=== PATIENT | male | born 1935 | race Caucasian/White ===

== ENCOUNTER 2018-02-04 11:01 | Observation (INO) ==
[2018-02-04] MEDS ORDERED: ASPIRIN 325 MG TABLET PO STA (11:31)
[2018-02-04 11:41] LABS: Basophils % 0.6 % (0.0-0.8); Eosinophils # 0.2 10*3/uL (0.0-0.87); Eosinophils % 3.1 % (0.00-10.9); Hematocrit 40.2 VOL% (42.0-52.0); Immature Granulocytes % 0.3 %; Immature Granulocytes Absolute 0.02 #; Lymphocytes # 1.3 10*3/uL (1.4-4.0); Lymphocytes % 20.6 % (21.2-54.2); Mean Corpuscular HGB Conc 32.3 GM/DL (32-36); Mean Corpuscular Hemoglobin 30 PG (27-34); Mean Platelet Volume 10.9 FL (9.6-12.0); Monocytes # 0.5 10*3/uL (0.11-0.8); Neutrophils # 4.4 10*3/uL (1.4-7.4); Neutrophils % 67.4 % (38.7-73.9); Platelet Count 103 T/CUMM (130-400); Red Blood Count 4.37 MC/CUMM (3.8-5.5); White Blood Count 6.5 T/CUMM (4-12)
[2018-02-04 12:24] LABS: Albumin 3.4 G/DL (3.4-5.0); Bilirubin,Total 1.1 MG/DL (0.2-1.0); Calcium 8.5 MG/DL (8.5-10.1); Potassium 4.5 MMOL/L (3.5-5.1)
[2018-02-04] MEDS ORDERED: BENZONATATE 100 MG CAPSULE PO PRN (14:01)
[2018-02-04] MEDS ORDERED: KETOROLAC 30 MG/1 ML VIAL IV ONE (14:01)
[2018-02-04] MEDS ORDERED: ONDANSETRON 4 MG/2 ML VIAL IV PRN (14:12)
[2018-02-04] MEDS ORDERED: ACETAMINOPHEN 325 MG TABLET PO PRN (14:12)
[2018-02-04] MEDS: GABAPENTIN 100 MG CAPSULE PO SCH ×2 (14:46→20:28)
[2018-02-04] MEDS ORDERED: LEVODOPA PO SCH (15:00)
[2018-02-04] MEDS ORDERED: CARBIDOPA PO SCH (15:00)
[2018-02-04] MEDS ORDERED: ENTACAPONE PO SCH (15:00)
[2018-02-04] MEDS: DICLOFENAC 1% GEL 100 GM TUBE TOP SCH ×2 (17:10→20:33)
[2018-02-04] MEDS: CARBIDOPA/LEVODOPA 25-100 MG TABLET PO SCH ×2 (17:10→20:28)
[2018-02-04] MEDS: ACETAMINOPHEN 325 MG TABLET PO SCH ×2 (18:14→20:28)
[2018-02-04] MEDS: FUROSEMIDE 20 MG TABLET PO SCH (18:22)
[2018-02-04] MEDS: TAMSULOSIN 0.4 MG CAPSULE PO SCH (20:28)
[2018-02-04] MEDS: CARVEDILOL 3.125 MG TABLET PO SCH (20:28)
[2018-02-04] MEDS: DOCUSATE SODIUM 100 MG CAPSULE PO SCH (20:28)
[2018-02-04] MEDS: APIXABAN 5 MG TABLET PO SCH (20:28)
[2018-02-04] MEDS ORDERED: clonazePAM 0.5 MG TABLET PO SCH (21:00)
[2018-02-04] MEDS ORDERED: ASPIRIN EC 81 MG TABLET PO SCH (21:00)
[2018-02-05 03:26] LABS: Basophils % 0.5 % (0.0-0.8); Eosinophils # 0.4 10*3/uL (0.0-0.87); Eosinophils % 4.7 % (0.00-10.9); Hematocrit 37.9 VOL% (42.0-52.0); Hemoglobin 12.4 GM/DL (14.0-18.0); Immature Granulocytes % 0.4 %; Immature Granulocytes Absolute 0.03 #; Lymphocytes # 1.8 10*3/uL (1.4-4.0); Lymphocytes % 22.3 % (21.2-54.2); Mean Corpuscular HGB Conc 32.7 GM/DL (32-36); Mean Corpuscular Hemoglobin 30 PG (27-34); Mean Corpuscular Volume 91.1 FL (87-102); Mean Platelet Volume 10.7 FL (9.6-12.0); Monocytes # 0.9 10*3/uL (0.11-0.8); Monocytes % 10.8 % (1.7-12.7); Neutrophils # 5.1 10*3/uL (1.4-7.4); Neutrophils % 61.3 % (38.7-73.9); Red Blood Count 4.16 MC/CUMM (3.8-5.5); Red Cell Distribution Width 14.1 % (9.3-17.3); White Blood Count 8.3 T/CUMM (4-12)
[2018-02-05 03:30] LABS: Platelet Count 96 T/CUMM (130-400)
[2018-02-05 03:51] LABS: Calcium 8.3 MG/DL (8.5-10.1); Osmolality,Calculated 284.1 MOS/KG (273-304); Potassium 3.8 MMOL/L (3.5-5.1)
[2018-02-05 03:52] LABS: Ovalocytes Few; Platelet Estimate Decreased
[2018-02-05] MEDS ORDERED: CHOLECALCIFEROL 5,000 UNIT TABLET PO SCH (09:00)
[2018-02-05] MEDS ORDERED: buPROPion XL 150 MG TABLET PO SCH (09:00)
[2018-02-05] MEDS ORDERED: MULTIVITAMIN (CENTRUM) TABLET PO SCH (09:00)
[2018-02-05] MEDS ORDERED: PANTOPRAZOLE 40 MG TABLET PO SCH (09:00)
[2018-02-05] MEDS ORDERED: AMIODARONE 200 MG TABLET PO SCH (09:00)
[2018-02-05] MEDS ORDERED: ESCITALOPRAM 10 MG TABLET PO SCH (09:00)
[2018-02-05] MEDS ORDERED: SIMVASTATIN 20 MG TABLET PO SCH (09:00)
[2018-02-05] MEDS: DOCUSATE SODIUM 100 MG CAPSULE PO SCH (09:20)
[2018-02-05] MEDS: GABAPENTIN 100 MG CAPSULE PO SCH (09:20)
[2018-02-05] MEDS: FUROSEMIDE 20 MG TABLET PO SCH (09:20)
[2018-02-05] MEDS: APIXABAN 5 MG TABLET PO SCH (09:21)
[2018-02-05] MEDS: TAMSULOSIN 0.4 MG CAPSULE PO SCH (09:21)
[2018-02-05] MEDS: CARBIDOPA/LEVODOPA 25-100 MG TABLET PO SCH (09:21)
[2018-02-05] MEDS: ACETAMINOPHEN 325 MG TABLET PO SCH (09:22)
[2018-02-05] MEDS: CARVEDILOL 3.125 MG TABLET PO SCH (09:22)
[2018-02-05] MEDS: DICLOFENAC 1% GEL 100 GM TUBE TOP SCH (09:23)
[2018-02-05 12:09] VITALS: BP 120/64
[2018-02-06] MEDS ORDERED: MAGNESIUM CHLORIDE 64 MG TABLET PO SCH (09:00)
[2018-02-06] MEDS ORDERED: DUTASTERIDE 0.5 MG CAPSULE PO SCH (09:00)
== END 2018-02-05 14:08 | disposition home or self-care (01) ==
LOC: EDUNIT# → EDBD → N.ED 11:01 → N.EDINP 11:01 → N.TELES 13:52 → N.2W 14:10 → N.TELES 16:11
PROVIDERS: ADMIT Internal Medicine; ATTEND Internal Medicine

== ENCOUNTER 2018-08-23 14:37 | Inpatient (IN) ==
[2018-08-23] MEDS ORDERED: SODIUM CHLORIDE 0.9% 500 ML IV STA (15:05)
[2018-08-23 16:00] LABS: Basophils % 0.3 % (0.0-0.8); Eosinophils # 0.2 10*3/uL (0.0-0.87); Eosinophils % 2.8 % (0.00-10.9); Hematocrit 38.2 VOL% (42.0-52.0); Hemoglobin 12.2 GM/DL (14.0-18.0); Immature Granulocytes % 0.4 %; Immature Granulocytes Absolute 0.03 #; Lymphocytes # 1.5 10*3/uL (1.4-4.0); Lymphocytes % 22.6 % (21.2-54.2); Mean Corpuscular HGB Conc 31.9 GM/DL (32-36); Mean Corpuscular Volume 93.6 FL (87-102); Mean Platelet Volume 10.1 FL (9.6-12.0); Monocytes % 10.1 % (1.7-12.7); Neutrophils % 63.8 % (38.7-73.9); Platelet Count 138 T/CUMM (130-400); Red Blood Count 4.08 MC/CUMM (3.8-5.5); Red Cell Distribution Width 14.2 % (9.3-17.3); White Blood Count 6.7 T/CUMM (4-12)
[2018-08-23 16:09] LABS: INR 1.1; PT Patient Result 12.1 SECS
[2018-08-23 16:10] LABS: Apearance,Urine CLEAR (Clear); Bilirubin,Urine Negative (Negative); Blood, Urine Negative (Negative); Glucose,Urine (UA) Negative (Negative); Ketones,Urine Negative (Negative); Mucus,Urine Occasional /LPF (Occasional); Nitrite,Urine Negative (Negative); Protein,Urine Negative; RBC,Urine <1 /HPF (0-4); Urine Color Yellow (Yellow); Urine Specific Gravity 1.008 (1.001-1.035); Urine Urobilinogen < 2.0 EU/DL (0.2-1.0); WBC,Urine <1 /HPF (0-6)
[2018-08-23 16:19] LABS: Alanine Aminotransferase 13 U/L (16-61); Albumin 3.5 G/DL (3.4-5.0); Alkaline Phosphatase 51 U/L (45-117); Aspartate Amino Transferase 19 U/L (0-37); Blood Urea Nitrogen 42 MG/DL (7-18); Calcium 8.9 MG/DL (8.5-10.1); Glucose 104 MG/DL (74-106); Osmolality,Calculated 293.1 MOS/KG (273-304); Total Protein 6.1 G/DL (6.4-8.3); Troponin I < 0.015 NG/ML (0.00-0.045)
[2018-08-23] MEDS ORDERED: FUROSEMIDE 40 MG TABLET PO PRN (18:14)
[2018-08-23] MEDS ORDERED: IPRATROPIUM 0.06% NASAL SPRAY 15 ML BOTTLE BOTH NARES PRN (18:14)
[2018-08-23] MEDS ORDERED: ONDANSETRON 4 MG/2 ML VIAL IV PRN (18:14)
[2018-08-23] MEDS ORDERED: FLUTICASONE 50 MCG NASAL SPRAY 16 GM BOTTLE BOTH NARES PRN (18:14)
[2018-08-23] MEDS: SODIUM CHLORIDE 0.9% 1,000 ML IV SCH (19:02)
[2018-08-23] MEDS: CARVEDILOL 3.125 MG TABLET PO SCH (21:41)
[2018-08-23] MEDS: ASPIRIN EC 81 MG TABLET PO SCH (21:41)
[2018-08-23] MEDS: CARBIDOPA/LEVODOPA 25-250 MG TABLET PO SCH (21:41)
[2018-08-23] MEDS: DOCUSATE SODIUM 100 MG CAPSULE PO SCH (21:41)
[2018-08-23] MEDS: clonazePAM 0.5 MG TABLET PO SCH (21:41)
[2018-08-23] MEDS: APIXABAN 5 MG TABLET PO SCH (21:41)
[2018-08-23] MEDS: ACETAMINOPHEN 325 MG TABLET PO PRN (21:42)
[2018-08-23] MEDS: TAMSULOSIN 0.4 MG CAPSULE PO SCH (21:42)
[2018-08-24] MEDS: SODIUM CHLORIDE 0.9% 1,000 ML IV SCH ×2 (06:01→16:43)
[2018-08-24 06:49] LABS: Basophils % 0.5 % (0.0-0.8); Eosinophils # 0.3 10*3/uL (0.0-0.87); Eosinophils % 4.1 % (0.00-10.9); Hematocrit 35.2 VOL% (42.0-52.0); Hemoglobin 11.5 GM/DL (14.0-18.0); Immature Granulocytes % 0.5 %; Immature Granulocytes Absolute 0.03 #; Lymphocytes # 1.9 10*3/uL (1.4-4.0); Lymphocytes % 29.1 % (21.2-54.2); Mean Corpuscular HGB Conc 32.7 GM/DL (32-36); Mean Corpuscular Volume 91.4 FL (87-102); Mean Platelet Volume 10.5 FL (9.6-12.0); Monocytes % 12.3 % (1.7-12.7); Neutrophils % 53.5 % (38.7-73.9); Platelet Count 126 T/CUMM (130-400); Red Blood Count 3.85 MC/CUMM (3.8-5.5); Red Cell Distribution Width 14.4 % (9.3-17.3); White Blood Count 6.4 T/CUMM (4-12)
[2018-08-24 07:11] LABS: Bilirubin,Total 0.9 MG/DL (0.2-1.0); Calcium 8.4 MG/DL (8.5-10.1); Osmolality,Calculated 293.7 MOS/KG (273-304); Risk Ratio 2.91; Total Protein 5.3 G/DL (6.4-8.3); VLDL CHOLESTEROL 29.2 MG/DL
[2018-08-24] MEDS ORDERED: MAGNESIUM HYDROXIDE SUSP 30 ML UDCUP PO PRN (08:22)
[2018-08-24] MEDS ORDERED: PANTOPRAZOLE 40 MG TABLET PO SCH (09:00)
[2018-08-24] MEDS: buPROPion XL 150 MG TABLET PO SCH (09:09)
[2018-08-24] MEDS: CARVEDILOL 3.125 MG TABLET PO SCH ×2 (09:09→17:26)
[2018-08-24] MEDS: ESCITALOPRAM 10 MG TABLET PO SCH (09:09)
[2018-08-24] MEDS: CARBIDOPA/LEVODOPA 25-250 MG TABLET PO SCH ×3 (09:09→20:27)
[2018-08-24] MEDS: CHOLECALCIFEROL 5,000 UNIT TABLET PO SCH (09:09)
[2018-08-24] MEDS: APIXABAN 5 MG TABLET PO SCH ×2 (09:09→20:27)
[2018-08-24] MEDS: MULTIVITAMIN (CENTRUM) TABLET PO SCH (09:09)
[2018-08-24] MEDS: PANTOPRAZOLE 40 MG TABLET PO SCH (09:10)
[2018-08-24] MEDS: TAMSULOSIN 0.4 MG CAPSULE PO SCH ×2 (09:10→20:27)
[2018-08-24] MEDS: AMIODARONE 200 MG TABLET PO SCH (09:10)
[2018-08-24] MEDS: SIMVASTATIN 20 MG TABLET PO SCH (09:10)
[2018-08-24] MEDS: ACETAMINOPHEN 325 MG TABLET PO PRN ×2 (09:36→18:35)
[2018-08-24] MEDS: DOCUSATE SODIUM 100 MG CAPSULE PO SCH ×2 (09:36→20:27)
[2018-08-24] MEDS: BIFIDOBACTERIUM INFANTIS 10.5 MG PO SCH (09:52)
[2018-08-24] MEDS: GABAPENTIN 300 MG CAPSULE PO SCH (15:53)
[2018-08-24 16:32] LABS: Apearance,Urine Slightly Hazy (Clear); Bilirubin,Urine Negative (Negative); Blood, Urine Negative (Negative); Glucose,Urine (UA) Negative (Negative); Ketones,Urine Negative (Negative); Mucus,Urine Occasional /LPF (Occasional); Nitrite,Urine Negative (Negative); Protein,Urine Negative; RBC,Urine 1 /HPF (0-4); Urine Color Yellow (Yellow); Urine Specific Gravity 1.013 (1.001-1.035); Urine Urobilinogen < 2.0 EU/DL (0.2-1.0); WBC,Urine 1 /HPF (0-6)
[2018-08-24] MEDS: MORPHINE 4 MG/1 ML VIAL IV PRN (19:32)
[2018-08-24] MEDS: clonazePAM 0.5 MG TABLET PO SCH (20:27)
[2018-08-24] MEDS: ASPIRIN EC 81 MG TABLET PO SCH (20:27)
[2018-08-25] MEDS: MORPHINE 4 MG/1 ML VIAL IV PRN ×2 (01:13→06:09)
[2018-08-25] MEDS: SODIUM CHLORIDE 0.9% 1,000 ML IV SCH ×3 (06:08→20:58)
[2018-08-25] MEDS: MULTIVITAMIN (CENTRUM) TABLET PO SCH (08:50)
[2018-08-25] MEDS: AMIODARONE 200 MG TABLET PO SCH (08:50)
[2018-08-25] MEDS: CARBIDOPA/LEVODOPA 25-250 MG TABLET PO SCH ×3 (08:50→20:57)
[2018-08-25] MEDS: APIXABAN 5 MG TABLET PO SCH ×2 (08:50→20:57)
[2018-08-25] MEDS: PANTOPRAZOLE 40 MG TABLET PO SCH (08:50)
[2018-08-25] MEDS: ESCITALOPRAM 10 MG TABLET PO SCH (08:50)
[2018-08-25] MEDS: DOCUSATE SODIUM 100 MG CAPSULE PO SCH ×2 (08:51→20:57)
[2018-08-25] MEDS: MAGNESIUM CHLORIDE 64 MG TABLET PO SCH (08:51)
[2018-08-25] MEDS: CARVEDILOL 3.125 MG TABLET PO SCH ×2 (08:51→17:27)
[2018-08-25] MEDS: buPROPion XL 150 MG TABLET PO SCH (08:51)
[2018-08-25] MEDS: CHOLECALCIFEROL 5,000 UNIT TABLET PO SCH (08:51)
[2018-08-25] MEDS: SIMVASTATIN 20 MG TABLET PO SCH (08:51)
[2018-08-25] MEDS: TAMSULOSIN 0.4 MG CAPSULE PO SCH ×2 (08:51→20:57)
[2018-08-25] MEDS: DUTASTERIDE 0.5 MG CAPSULE PO SCH (08:52)
[2018-08-25] MEDS: BIFIDOBACTERIUM INFANTIS 10.5 MG PO SCH (09:26)
[2018-08-25] MEDS: GABAPENTIN 300 MG CAPSULE PO SCH (15:25)
[2018-08-25] MEDS: clonazePAM 0.5 MG TABLET PO SCH (20:57)
[2018-08-25] MEDS: ASPIRIN EC 81 MG TABLET PO SCH (20:57)
[2018-08-26] MEDS ORDERED: traMADol 50 MG TABLET PO PRN (08:57)
[2018-08-26] MEDS ORDERED: METHOCARBAMOL 750 MG TABLET PO PRN (08:57)
[2018-08-26 09:19] LABS: Basophils % 0.4 % (0.0-0.8); Eosinophils # 0.2 10*3/uL (0.0-0.87); Hematocrit 37.5 VOL% (42.0-52.0); Hemoglobin 12.1 GM/DL (14.0-18.0); Immature Granulocytes % 0.7 %; Immature Granulocytes Absolute 0.06 #; Lymphocytes % 12.6 % (21.2-54.2); Mean Corpuscular HGB Conc 32.3 GM/DL (32-36); Mean Corpuscular Volume 92.4 FL (87-102); Mean Platelet Volume 10.1 FL (9.6-12.0); Monocytes % 8.2 % (1.7-12.7); Neutrophils % 75.1 % (38.7-73.9); Platelet Count 133 T/CUMM (130-400); Red Blood Count 4.06 MC/CUMM (3.8-5.5); Red Cell Distribution Width 14.1 % (9.3-17.3)
[2018-08-26] MEDS: APIXABAN 5 MG TABLET PO SCH ×2 (09:36→22:52)
[2018-08-26] MEDS: CHOLECALCIFEROL 5,000 UNIT TABLET PO SCH (09:36)
[2018-08-26] MEDS: MULTIVITAMIN (CENTRUM) TABLET PO SCH (09:36)
[2018-08-26] MEDS: ESCITALOPRAM 10 MG TABLET PO SCH (09:36)
[2018-08-26] MEDS: buPROPion XL 150 MG TABLET PO SCH (09:36)
[2018-08-26] MEDS: PANTOPRAZOLE 40 MG TABLET PO SCH (09:37)
[2018-08-26] MEDS: TAMSULOSIN 0.4 MG CAPSULE PO SCH ×2 (09:37→22:52)
[2018-08-26] MEDS: DOCUSATE SODIUM 100 MG CAPSULE PO SCH ×2 (09:37→22:52)
[2018-08-26] MEDS: CARVEDILOL 3.125 MG TABLET PO SCH ×2 (09:37→16:54)
[2018-08-26] MEDS: AMIODARONE 200 MG TABLET PO SCH (09:37)
[2018-08-26] MEDS: CARBIDOPA/LEVODOPA 25-250 MG TABLET PO SCH ×3 (09:37→22:53)
[2018-08-26 09:51] LABS: Calcium 8.5 MG/DL (8.5-10.1)
[2018-08-26] MEDS: BIFIDOBACTERIUM INFANTIS 10.5 MG PO SCH (11:34)
[2018-08-26] MEDS ORDERED: BISACODYL 10 MG SUPP RECTAL STA (11:52)
[2018-08-26] MEDS ORDERED: AZITHROMYCIN 250 MG TABLET PO SCH (12:00)
[2018-08-26] MEDS: cefTRIAXone 1,000 MG in SYRINGE 1 EACH IV SCH (12:44)
[2018-08-26] MEDS: ACETAMINOPHEN 325 MG TABLET PO PRN ×2 (13:32→22:56)
[2018-08-26] MEDS: GABAPENTIN 300 MG CAPSULE PO SCH (15:59)
[2018-08-26] MEDS ORDERED: SIMVASTATIN 20 MG TABLET PO SCH (21:00)
[2018-08-26] MEDS ORDERED: CALCIUM CARBONATE CHEW 500 MG TABLET PO PRN (21:29)
[2018-08-26] MEDS: ASPIRIN EC 81 MG TABLET PO SCH (22:51)
[2018-08-26] MEDS: clonazePAM 0.5 MG TABLET PO SCH (22:52)
[2018-08-27] MEDS: SODIUM CHLORIDE 0.9% 1,000 ML IV SCH (01:47)
[2018-08-27] MEDS: DOCUSATE SODIUM 100 MG CAPSULE PO SCH (09:08)
[2018-08-27] MEDS: ESCITALOPRAM 10 MG TABLET PO SCH (09:08)
[2018-08-27] MEDS: CHOLECALCIFEROL 5,000 UNIT TABLET PO SCH (09:08)
[2018-08-27] MEDS: buPROPion XL 150 MG TABLET PO SCH (09:08)
[2018-08-27] MEDS: DUTASTERIDE 0.5 MG CAPSULE PO SCH (09:08)
[2018-08-27] MEDS: CARVEDILOL 3.125 MG TABLET PO SCH (09:09)
[2018-08-27] MEDS: AMIODARONE 200 MG TABLET PO SCH (09:09)
[2018-08-27] MEDS: MAGNESIUM CHLORIDE 64 MG TABLET PO SCH (09:09)
[2018-08-27] MEDS: CARBIDOPA/LEVODOPA 25-250 MG TABLET PO SCH (09:09)
[2018-08-27] MEDS: PANTOPRAZOLE 40 MG TABLET PO SCH (09:09)
[2018-08-27] MEDS: APIXABAN 5 MG TABLET PO SCH (09:09)
[2018-08-27] MEDS: TAMSULOSIN 0.4 MG CAPSULE PO SCH (09:10)
[2018-08-27] MEDS: cefTRIAXone 1,000 MG in SYRINGE 1 EACH IV SCH (09:10)
[2018-08-27] MEDS: MULTIVITAMIN (CENTRUM) TABLET PO SCH (09:10)
[2018-08-27] MEDS: BIFIDOBACTERIUM INFANTIS 10.5 MG PO SCH (09:12)
[2018-08-27 12:52] VITALS: BP 114/68
== END 2018-08-27 15:15 | DRG 56 ==
LOC: N.ED 14:37 → N.EDINP 17:19 → N.5E 18:14
PROVIDERS: ADMIT Internal Medicine; ATTEND Internal Medicine

== ENCOUNTER 2020-08-29 11:18 | Inpatient (IN) ==
[2020-08-29] MEDS ORDERED: SODIUM CHLORIDE 0.9% 1,000 ML IV STA (11:47)
[2020-08-29 12:17] LABS: Basophils % 0.3 % (0.0-0.8); Eosinophils # 0.1 10*3/uL (0.0-0.87); Eosinophils % 0.8 % (0.00-10.9); Hematocrit 35.9 VOL% (42.0-52.0); Hemoglobin 11.5 GM/DL (14.0-18.0); Immature Granulocytes % 0.5 %; Immature Granulocytes Absolute 0.05 #; Lymphocytes # 1.6 10*3/uL (1.4-4.0); Lymphocytes % 15.6 % (21.2-54.2); Mean Corpuscular Volume 92.5 FL (87-102); Mean Platelet Volume 10.4 FL (9.6-12.0); Monocytes % 11.4 % (1.7-12.7); Neutrophils % 71.4 % (38.7-73.9); Platelet Count 120 T/CUMM (130-400); Red Blood Count 3.88 MC/CUMM (3.8-5.5); Red Cell Distribution Width 14.2 % (9.3-17.3); White Blood Count 9.9 T/CUMM (4-12)
[2020-08-29 12:33] LABS: Albumin 3.6 G/DL (3.4-5.0); Bilirubin,Total 0.7 MG/DL (0.2-1.0); Calcium 8.7 MG/DL (8.5-10.1); Osmolality,Calculated 286.1 MOS/KG (273-304); Potassium 3.9 MMOL/L (3.5-5.1); Total Protein 6.3 G/DL (6.4-8.2)
[2020-08-29] MEDS ORDERED: cefTRIAXone 1,000 MG in SODIUM CHLORIDE 0.9% 100 ML IV STA (13:54)
[2020-08-29] MEDS ORDERED: ACETAMINOPHEN 500 MG TABLET ONE (13:55)
[2020-08-29] MEDS ORDERED: ACETAMINOPHEN 325 MG TABLET PO PRN (13:58)
[2020-08-29] MEDS ORDERED: ONDANSETRON 4 MG/2 ML VIAL IV PRN (13:58)
[2020-08-29] MEDS ORDERED: FLUTICASONE 50 MCG NASAL SPRAY 16 GM BOTTLE BOTH NARES PRN (14:00)
[2020-08-29] MEDS ORDERED: MIRTAZAPINE 15 MG TABLET PO PRN (14:00)
[2020-08-29] MEDS ORDERED: IPRATROPIUM 0.06% NASAL SPRAY 15 ML BOTTLE BOTH NARES PRN (14:00)
[2020-08-29] MEDS ORDERED: cefTRIAXone 1,000 MG in SODIUM CHLORIDE 0.9% 100 ML IV SCH (14:30)
[2020-08-29] MEDS: SODIUM CHLORIDE 0.45% 1,000 ML IV SCH (14:50)
[2020-08-29] MEDS: CARBIDOPA/LEVODOPA 25-250 MG TABLET PO SCH ×2 (16:43→20:07)
[2020-08-29] MEDS: DICLOFENAC 1% GEL 100 GM TUBE TOP SCH (20:06)
[2020-08-29] MEDS: carvediloL 3.125 MG TABLET PO SCH (20:07)
[2020-08-29] MEDS: ASPIRIN EC 81 MG TABLET PO SCH (20:07)
[2020-08-29] MEDS: TAMSULOSIN 0.4 MG CAPSULE PO SCH (20:07)
[2020-08-29] MEDS: DICYCLOMINE 10 MG CAPSULE PO SCH (20:07)
[2020-08-29] MEDS: APIXABAN 5 MG TABLET PO SCH (20:07)
[2020-08-29] MEDS: clonazePAM 0.5 MG TABLET PO SCH (20:07)
[2020-08-29] MEDS: CHOLECALCIFEROL 5,000 UNIT TABLET PO SCH (20:07)
[2020-08-29] MEDS: SIMVASTATIN 20 MG TABLET PO SCH (20:07)
[2020-08-29] MEDS: CYANOCOBALAMIN 5000 MCG SCH (23:30)
[2020-08-30] MEDS: SODIUM CHLORIDE 0.45% 1,000 ML IV SCH (04:38)
[2020-08-30 05:28] LABS: Basophils % 0.4 % (0.0-0.8); Eosinophils # 0.2 10*3/uL (0.0-0.87); Eosinophils % 2.3 % (0.00-10.9); Hematocrit 34.2 VOL% (42.0-52.0); Hemoglobin 11.1 GM/DL (14.0-18.0); Immature Granulocytes % 0.4 %; Immature Granulocytes Absolute 0.03 #; Lymphocytes # 1.8 10*3/uL (1.4-4.0); Lymphocytes % 24.8 % (21.2-54.2); Mean Corpuscular HGB Conc 32.5 GM/DL (32-36); Mean Corpuscular Volume 92.4 FL (87-102); Mean Platelet Volume 10.8 FL (9.6-12.0); Neutrophils % 59.1 % (38.7-73.9); Platelet Count 100 T/CUMM (130-400); Red Cell Distribution Width 14.4 % (9.3-17.3); White Blood Count 7.3 T/CUMM (4-12)
[2020-08-30 05:42] LABS: Calcium 8.4 MG/DL (8.5-10.1); Potassium 3.8 MMOL/L (3.5-5.1)
[2020-08-30 05:43] LABS: Hypochromasia 1+; Microcytosis 1+; Platelet Estimate Decreased
[2020-08-30 05:46] LABS: Risk Ratio 3.4; VLDL Cholesterol 25.4 MG/DL
[2020-08-30] MEDS ORDERED: SERTRALINE 100 MG TABLET PO SCH (09:00)
[2020-08-30] MEDS ORDERED: PIPERACILLIN/TAZOBACTAM 3,375 MG in SODIUM CHLORIDE 0.9% 100 ML IV STA (09:14)
[2020-08-30] MEDS: TAMSULOSIN 0.4 MG CAPSULE PO SCH ×2 (10:20→20:49)
[2020-08-30] MEDS: carvediloL 3.125 MG TABLET PO SCH ×2 (10:20→20:49)
[2020-08-30] MEDS: DUTASTERIDE 0.5 MG CAPSULE PO SCH (10:21)
[2020-08-30] MEDS: FUROSEMIDE 40 MG TABLET PO SCH (10:21)
[2020-08-30] MEDS: MAGNESIUM CHLORIDE 64 MG TABLET PO SCH (10:21)
[2020-08-30] MEDS: ESCITALOPRAM 10 MG TABLET PO SCH (10:21)
[2020-08-30] MEDS: APIXABAN 5 MG TABLET PO SCH ×2 (10:22→20:49)
[2020-08-30] MEDS: MULTIVITAMIN (CENTRUM) TABLET PO SCH (10:22)
[2020-08-30] MEDS: AMIODARONE 200 MG TABLET PO SCH (10:22)
[2020-08-30] MEDS: CARBIDOPA/LEVODOPA 25-250 MG TABLET PO SCH ×3 (10:22→20:49)
[2020-08-30] MEDS: FEXOFENADINE 60 MG TABLET PO SCH (10:23)
[2020-08-30] MEDS: PANTOPRAZOLE 40 MG TABLET PO SCH (10:23)
[2020-08-30] MEDS: POLYETHYLENE GLYCOL POWDER 17 GM PACK PO SCH (10:23)
[2020-08-30] MEDS: PIPERACILLIN/TAZOBACTAM 3,375 MG in SODIUM CHLORIDE 0.9% 100 ML IV SCH ×2 (10:31→17:30)
[2020-08-30] MEDS: DICLOFENAC 1% GEL 100 GM TUBE TOP SCH ×2 (17:57→20:51)
[2020-08-30] MEDS: ASPIRIN EC 81 MG TABLET PO SCH (20:48)
[2020-08-30] MEDS: clonazePAM 0.5 MG TABLET PO SCH (20:49)
[2020-08-30] MEDS: DICYCLOMINE 10 MG CAPSULE PO SCH (20:49)
[2020-08-30] MEDS: SIMVASTATIN 20 MG TABLET PO SCH (20:50)
[2020-08-30] MEDS: CHOLECALCIFEROL 5,000 UNIT TABLET PO SCH (20:55)
[2020-08-30] MEDS: CYANOCOBALAMIN 5000 MCG SCH (20:57)
[2020-08-31] MEDS: PIPERACILLIN/TAZOBACTAM 3,375 MG in SODIUM CHLORIDE 0.9% 100 ML IV SCH ×3 (01:17→16:31)
[2020-08-31 05:55] LABS: Basophils % 0.5 % (0.0-0.8); Eosinophils # 0.3 10*3/uL (0.0-0.87); Eosinophils % 3.5 % (0.00-10.9); Hematocrit 34.8 VOL% (42.0-52.0); Hemoglobin 11.5 GM/DL (14.0-18.0); Immature Granulocytes % 0.5 %; Immature Granulocytes Absolute 0.04 #; Lymphocytes # 1.8 10*3/uL (1.4-4.0); Lymphocytes % 21.7 % (21.2-54.2); Mean Corpuscular Volume 92.6 FL (87-102); Mean Platelet Volume 10.6 FL (9.6-12.0); Monocytes % 12.7 % (1.7-12.7); Neutrophils % 61.1 % (38.7-73.9); Platelet Count 115 T/CUMM (130-400); Red Blood Count 3.76 MC/CUMM (3.8-5.5); Red Cell Distribution Width 14.3 % (9.3-17.3); White Blood Count 8.4 T/CUMM (4-12)
[2020-08-31 06:16] LABS: Calcium 8.6 MG/DL (8.5-10.1); Hypochromasia 1+; Microcytosis 1+; Osmolality,Calculated 281.4 MOS/KG (273-304); Platelet Estimate Decreased; Potassium 3.6 MMOL/L (3.5-5.1)
[2020-08-31] MEDS: SODIUM CHLORIDE 0.45% 1,000 ML IV SCH ×2 (07:14→07:24)
[2020-08-31] MEDS: CARBIDOPA/LEVODOPA 25-250 MG TABLET PO SCH ×3 (08:19→20:37)
[2020-08-31] MEDS: FEXOFENADINE 60 MG TABLET PO SCH (08:19)
[2020-08-31] MEDS: AMIODARONE 200 MG TABLET PO SCH (08:19)
[2020-08-31] MEDS: TAMSULOSIN 0.4 MG CAPSULE PO SCH ×2 (08:19→20:37)
[2020-08-31] MEDS: carvediloL 3.125 MG TABLET PO SCH ×2 (08:19→20:36)
[2020-08-31] MEDS: PANTOPRAZOLE 40 MG TABLET PO SCH (08:19)
[2020-08-31] MEDS: ESCITALOPRAM 10 MG TABLET PO SCH (08:19)
[2020-08-31] MEDS: MULTIVITAMIN (CENTRUM) TABLET PO SCH (08:19)
[2020-08-31] MEDS: APIXABAN 5 MG TABLET PO SCH ×2 (08:19→20:37)
[2020-08-31] MEDS: FUROSEMIDE 20 MG TABLET PO SCH (08:20)
[2020-08-31] MEDS: DICLOFENAC 1% GEL 100 GM TUBE TOP SCH ×2 (08:20→20:37)
[2020-08-31] MEDS: ASPIRIN EC 81 MG TABLET PO SCH (20:36)
[2020-08-31] MEDS: clonazePAM 0.5 MG TABLET PO SCH (20:36)
[2020-08-31] MEDS: SIMVASTATIN 20 MG TABLET PO SCH (20:36)
[2020-08-31] MEDS: DICYCLOMINE 10 MG CAPSULE PO SCH (20:37)
[2020-08-31] MEDS: CHOLECALCIFEROL 5,000 UNIT TABLET PO SCH (20:37)
[2020-08-31] MEDS: CYANOCOBALAMIN 5000 MCG SCH (22:26)
[2020-09-01] MEDS: PIPERACILLIN/TAZOBACTAM 3,375 MG in SODIUM CHLORIDE 0.9% 100 ML IV SCH ×4 (01:13→16:38)
[2020-09-01] MEDS: DICLOFENAC 1% GEL 100 GM TUBE TOP SCH ×2 (08:58→20:05)
[2020-09-01] MEDS: POLYETHYLENE GLYCOL POWDER 17 GM PACK PO SCH (08:58)
[2020-09-01] MEDS: FEXOFENADINE 60 MG TABLET PO SCH (08:59)
[2020-09-01] MEDS: CARBIDOPA/LEVODOPA 25-250 MG TABLET PO SCH ×3 (08:59→20:06)
[2020-09-01] MEDS: DUTASTERIDE 0.5 MG CAPSULE PO SCH (08:59)
[2020-09-01] MEDS: PANTOPRAZOLE 40 MG TABLET PO SCH (08:59)
[2020-09-01] MEDS: TAMSULOSIN 0.4 MG CAPSULE PO SCH ×2 (08:59→20:06)
[2020-09-01] MEDS: MAGNESIUM CHLORIDE 64 MG TABLET PO SCH (08:59)
[2020-09-01] MEDS: APIXABAN 5 MG TABLET PO SCH ×2 (08:59→20:06)
[2020-09-01] MEDS: MULTIVITAMIN (CENTRUM) TABLET PO SCH (08:59)
[2020-09-01] MEDS: FUROSEMIDE 40 MG TABLET PO SCH (09:00)
[2020-09-01] MEDS: AMIODARONE 200 MG TABLET PO SCH (09:00)
[2020-09-01] MEDS: carvediloL 3.125 MG TABLET PO SCH ×2 (09:00→20:06)
[2020-09-01] MEDS: ESCITALOPRAM 10 MG TABLET PO SCH (09:01)
[2020-09-01] MEDS: clonazePAM 0.5 MG TABLET PO SCH (20:06)
[2020-09-01] MEDS: SIMVASTATIN 20 MG TABLET PO SCH (20:06)
[2020-09-01] MEDS: ASPIRIN EC 81 MG TABLET PO SCH (20:06)
[2020-09-01] MEDS: CHOLECALCIFEROL 5,000 UNIT TABLET PO SCH (20:06)
[2020-09-01] MEDS: PANTOPRAZOLE 40 MG VIAL IV SCH (20:07)
[2020-09-01] MEDS: CYANOCOBALAMIN 5000 MCG SCH ×2 (20:08→20:22)
[2020-09-02] MEDS: PIPERACILLIN/TAZOBACTAM 3,375 MG in SODIUM CHLORIDE 0.9% 100 ML IV SCH (02:04)
[2020-09-02] MEDS ORDERED: LINACLOTIDE 145 MCG CAPSULE PO SCH (07:30)
[2020-09-02] MEDS ORDERED: AMOXICILLIN/CLAV 875 MG TABLET PO SCH (08:45)
[2020-09-02] MEDS: ESCITALOPRAM 10 MG TABLET PO SCH (08:56)
[2020-09-02] MEDS: FEXOFENADINE 60 MG TABLET PO SCH (08:56)
[2020-09-02] MEDS: APIXABAN 5 MG TABLET PO SCH (08:56)
[2020-09-02] MEDS: carvediloL 3.125 MG TABLET PO SCH (08:56)
[2020-09-02] MEDS: TAMSULOSIN 0.4 MG CAPSULE PO SCH (08:56)
[2020-09-02] MEDS: FUROSEMIDE 20 MG TABLET PO SCH (08:57)
[2020-09-02] MEDS: CARBIDOPA/LEVODOPA 25-250 MG TABLET PO SCH (08:57)
[2020-09-02] MEDS: MULTIVITAMIN (CENTRUM) TABLET PO SCH (08:57)
[2020-09-02] MEDS: AMIODARONE 200 MG TABLET PO SCH (08:57)
[2020-09-02] MEDS: PANTOPRAZOLE 40 MG VIAL IV SCH (08:58)
[2020-09-02] MEDS ORDERED: POLYETHYLENE GLYCOL POWDER 17 GM PACK PO SCH (09:00)
[2020-09-02] MEDS: DICLOFENAC 1% GEL 100 GM TUBE TOP SCH (09:23)
[2020-09-02 11:04] VITALS: BP 119/65
== END 2020-09-02 12:55 | DRG 194 ==
LOC: EDUNIT# → EDBD → N.EDINP 11:18 → N.ED 11:18 → N.3E 14:11
PROVIDERS: ADMIT Internal Medicine; ATTEND Internal Medicine

== ENCOUNTER 2022-03-05 11:26 | Inpatient (IN) ==
[2022-03-05 11:52] LABS: Bilirubin,Urine Negative (Negative); Blood, Urine Negative (Negative); Glucose,Urine (UA) Negative (Negative); Ketones,Urine Negative (Negative); Nitrite,Urine Negative (Negative); Protein,Urine Negative (Negative); Urine Appearance Clear (Clear); Urine Color Yellow (Yellow); Urine Specific Gravity 1.015 (1.001-1.035); Urine pH 5.5 (4.5-8.0)
[2022-03-05 11:54] LABS: Mucus,Urine Occasional /LPF (Occasional); RBC,Urine 2 /HPF (0-4); Squamous Epithelial Cell,Urine Occasional /HPF (0-10)
[2022-03-05] MEDS ORDERED: SODIUM CHLORIDE 0.9% 500 ML IV STA (11:55)
[2022-03-05] MEDS ORDERED: cefTRIAXone 1,000 MG in SODIUM CHLORIDE 0.9% 100 ML IV STA (11:55)
[2022-03-05 12:00] LABS: Basophils % 0.3 % (0.0-0.8); Eosinophils % 0.3 % (0.00-10.9); Hematocrit 35.4 VOL% (42.0-52.0); Hemoglobin 11.5 GM/DL (14.0-18.0); Immature Granulocytes % 0.5 %; Immature Granulocytes Absolute 0.04 #; Lymphocytes # 1.8 10*3/uL (1.4-4.0); Lymphocytes % 22.4 % (21.2-54.2); Mean Corpuscular HGB Conc 32.5 GM/DL (32-36); Mean Corpuscular Volume 96.5 FL (87-102); Mean Platelet Volume 10.3 FL (9.6-12.0); Monocytes # 0.7 10*3/uL (0.11-0.8); Monocytes % 8.5 % (1.7-12.7); Red Blood Count 3.67 MC/CUMM (3.8-5.5); Red Cell Distribution Width 14.3 % (9.3-17.3)
[2022-03-05 12:01] LABS: Platelet Count 96 T/CUMM (130-400)
[2022-03-05 12:19] LABS: Albumin 3.2 G/DL (3.4-5.0); Bilirubin,Total 0.6 MG/DL (0.20-1.00); Calcium 8.8 MG/DL (8.5-10.1); Osmolality,Calculated 286.1 MOS/KG (273-304); Potassium 4.3 MMOL/L (3.5-5.1); Total Protein 6.2 G/DL (6.4-8.2)
[2022-03-05 12:20] LABS: Platelet Estimate Decreased
[2022-03-05] MEDS ORDERED: ONDANSETRON 4 MG/2 ML VIAL IV PRN (13:58)
[2022-03-05] MEDS: SODIUM CHLORIDE 0.9% 1,000 ML IV SCH (17:11)
[2022-03-05] MEDS: CARBIDOPA/LEVODOPA 25-100 MG TABLET PO SCH ×2 (17:11→21:02)
[2022-03-05] MEDS: ASPIRIN EC 81 MG TABLET PO SCH (21:00)
[2022-03-05] MEDS: DOCUSATE SODIUM 100 MG CAPSULE PO SCH (21:00)
[2022-03-05] MEDS: APIXABAN 2.5 MG TABLET PO SCH (21:00)
[2022-03-05] MEDS: FAMOTIDINE 20 MG TABLET PO SCH (21:01)
[2022-03-05] MEDS: TAMSULOSIN 0.4 MG CAPSULE PO SCH (21:01)
[2022-03-05] MEDS: ACETAMINOPHEN 325 MG TABLET PO PRN (21:20)
[2022-03-05] MEDS: FEXOFENADINE 60 MG TABLET PO SCH (21:20)
[2022-03-05] MEDS ORDERED: PHENOL 1.4% THROAT SPRAY 177 ML BOTTLE PO PRN (22:06)
[2022-03-06] MEDS: SODIUM CHLORIDE 0.9% 1,000 ML IV SCH ×3 (02:30→22:00)
[2022-03-06 05:13] LABS: Basophils % 0.4 % (0.0-0.8); Eosinophils # 0.1 10*3/uL (0.0-0.87); Eosinophils % 1.7 % (0.00-10.9); Hematocrit 32.5 VOL% (42.0-52.0); Hemoglobin 10.6 GM/DL (14.0-18.0); Immature Granulocytes % 0.2 %; Immature Granulocytes Absolute 0.01 #; Lymphocytes # 2.1 10*3/uL (1.4-4.0); Lymphocytes % 41.2 % (21.2-54.2); Mean Corpuscular HGB Conc 32.6 GM/DL (32-36); Monocytes # 0.6 10*3/uL (0.11-0.8); Monocytes % 11.8 % (1.7-12.7); Neutrophils % 44.7 % (38.7-73.9); Red Blood Count 3.35 MC/CUMM (3.8-5.5); Red Cell Distribution Width 14.4 % (9.3-17.3); White Blood Count 5.2 T/CUMM (4-12)
[2022-03-06 05:15] LABS: Platelet Count 82 T/CUMM (130-400)
[2022-03-06 05:24] LABS: Calcium 8.1 MG/DL (8.5-10.1); Osmolality,Calculated 289.8 MOS/KG (273-304); Potassium 3.7 MMOL/L (3.5-5.1)
[2022-03-06] MEDS: LEVOTHYROXINE 50 MCG TABLET PO SCH (06:33)
[2022-03-06 06:48] LABS: Platelet Estimate Decreased
[2022-03-06] MEDS: CARBIDOPA/LEVODOPA 25-100 MG TABLET PO SCH ×3 (09:50→21:02)
[2022-03-06] MEDS: APIXABAN 2.5 MG TABLET PO SCH ×2 (09:51→21:02)
[2022-03-06] MEDS: DUTASTERIDE 0.5 MG CAPSULE PO SCH (09:51)
[2022-03-06] MEDS: ERGOCALCIFEROL 50,000 UNIT CAPSULE PO SCH (09:51)
[2022-03-06] MEDS: FAMOTIDINE 20 MG TABLET PO SCH ×2 (09:51→21:02)
[2022-03-06] MEDS: TAMSULOSIN 0.4 MG CAPSULE PO SCH ×2 (09:51→21:02)
[2022-03-06] MEDS: AMIODARONE 200 MG TABLET PO SCH (09:52)
[2022-03-06] MEDS: carvediloL 3.125 MG TABLET PO SCH (09:52)
[2022-03-06] MEDS: ESCITALOPRAM 10 MG TABLET PO SCH (09:52)
[2022-03-06] MEDS: DOCUSATE SODIUM 100 MG CAPSULE PO SCH ×2 (09:52→21:02)
[2022-03-06] MEDS: buPROPion XL 150 MG TABLET PO SCH (09:52)
[2022-03-06] MEDS: cefTRIAXone 1,000 MG in SODIUM CHLORIDE 0.9% 100 ML IV SCH (11:42)
[2022-03-06] MEDS: FLUTICASONE 50 MCG NASAL SPRAY 16 GM BOTTLE BOTH NARES PRN (16:37)
[2022-03-06] MEDS ORDERED: FLUTICASONE 50 MCG NASAL SPRAY 16 GM BOTTLE BOTH NARES SCH (21:00)
[2022-03-06] MEDS: FEXOFENADINE 60 MG TABLET PO SCH (21:02)
[2022-03-06] MEDS: ASPIRIN EC 81 MG TABLET PO SCH (21:02)
[2022-03-07 06:01] LABS: Basophils % 0.4 % (0.0-0.8); Eosinophils # 0.2 10*3/uL (0.0-0.87); Eosinophils % 2.7 % (0.00-10.9); Hematocrit 32.3 VOL% (42.0-52.0); Hemoglobin 10.3 GM/DL (14.0-18.0); Immature Granulocytes % 0.5 %; Immature Granulocytes Absolute 0.03 #; Lymphocytes # 1.8 10*3/uL (1.4-4.0); Mean Corpuscular HGB Conc 31.9 GM/DL (32-36); Mean Corpuscular Volume 96.7 FL (87-102); Mean Platelet Volume 11.1 FL (9.6-12.0); Monocytes # 0.6 10*3/uL (0.11-0.8); Monocytes % 10.3 % (1.7-12.7); Neutrophils % 53.1 % (38.7-73.9); Platelet Count 85 T/CUMM (130-400); Red Blood Count 3.34 MC/CUMM (3.8-5.5); Red Cell Distribution Width 14.2 % (9.3-17.3); White Blood Count 5.5 T/CUMM (4-12)
[2022-03-07] MEDS: LEVOTHYROXINE 50 MCG TABLET PO SCH (06:13)
[2022-03-07 06:20] LABS: Calcium 8.3 MG/DL (8.5-10.1); Potassium 3.7 MMOL/L (3.5-5.1)
[2022-03-07 06:23] LABS: Platelet Estimate Decreased
[2022-03-07] MEDS: CARBIDOPA/LEVODOPA 25-100 MG TABLET PO SCH ×3 (08:17→21:46)
[2022-03-07] MEDS: TAMSULOSIN 0.4 MG CAPSULE PO SCH ×2 (08:18→21:46)
[2022-03-07] MEDS: DOCUSATE SODIUM 100 MG CAPSULE PO SCH ×2 (08:18→21:47)
[2022-03-07] MEDS: carvediloL 3.125 MG TABLET PO SCH (08:18)
[2022-03-07] MEDS: APIXABAN 2.5 MG TABLET PO SCH ×2 (08:18→21:47)
[2022-03-07] MEDS: buPROPion XL 150 MG TABLET PO SCH (08:18)
[2022-03-07] MEDS: FAMOTIDINE 20 MG TABLET PO SCH ×2 (08:18→21:47)
[2022-03-07] MEDS: DUTASTERIDE 0.5 MG CAPSULE PO SCH (08:18)
[2022-03-07] MEDS: AMIODARONE 200 MG TABLET PO SCH (08:18)
[2022-03-07] MEDS: POLYETHYLENE GLYCOL POWDER 17 GM PACK PO SCH (08:22)
[2022-03-07] MEDS: ESCITALOPRAM 10 MG TABLET PO SCH (09:27)
[2022-03-07] MEDS: SODIUM CHLORIDE 0.9% 1,000 ML IV SCH ×2 (12:19→19:03)
[2022-03-07] MEDS: cefTRIAXone 1,000 MG in SODIUM CHLORIDE 0.9% 100 ML IV SCH (12:19)
[2022-03-07] MEDS ORDERED: FUROSEMIDE 40 MG/4 ML VIAL IV ONE (16:48)
[2022-03-07] MEDS: ASPIRIN EC 81 MG TABLET PO SCH (21:47)
[2022-03-07] MEDS: FEXOFENADINE 60 MG TABLET PO SCH (21:47)
[2022-03-08 05:14] LABS: Basophils % 0.1 % (0.0-0.8); Eosinophils % 0.1 % (0.00-10.9); Hemoglobin 10.8 GM/DL (14.0-18.0); Immature Granulocytes % 0.5 %; Immature Granulocytes Absolute 0.04 #; Lymphocytes # 1.5 10*3/uL (1.4-4.0); Lymphocytes % 20.3 % (21.2-54.2); Mean Corpuscular HGB Conc 32.7 GM/DL (32-36); Monocytes # 0.8 10*3/uL (0.11-0.8); Monocytes % 11.4 % (1.7-12.7); Neutrophils % 67.6 % (38.7-73.9); Platelet Count 88 T/CUMM (130-400); Red Blood Count 3.55 MC/CUMM (3.8-5.5); Red Cell Distribution Width 13.8 % (9.3-17.3); White Blood Count 7.4 T/CUMM (4-12)
[2022-03-08 05:38] LABS: Platelet Estimate Decreased
[2022-03-08 05:52] LABS: Albumin 3.1 G/DL (3.4-5.0); Bilirubin,Total 0.7 MG/DL (0.20-1.00); Calcium 8.5 MG/DL (8.5-10.1); Osmolality,Calculated 283.4 MOS/KG (273-304); Potassium 3.6 MMOL/L (3.5-5.1); Total Protein 5.8 G/DL (6.4-8.2)
[2022-03-08] MEDS: LEVOTHYROXINE 50 MCG TABLET PO SCH (06:08)
[2022-03-08] MEDS: FAMOTIDINE 20 MG TABLET PO SCH ×2 (08:51→21:30)
[2022-03-08] MEDS: CARBIDOPA/LEVODOPA 25-100 MG TABLET PO SCH ×3 (08:51→21:53)
[2022-03-08] MEDS: AMIODARONE 200 MG TABLET PO SCH (08:51)
[2022-03-08] MEDS: buPROPion XL 150 MG TABLET PO SCH (08:52)
[2022-03-08] MEDS: carvediloL 3.125 MG TABLET PO SCH (08:52)
[2022-03-08] MEDS: TAMSULOSIN 0.4 MG CAPSULE PO SCH ×2 (08:52→21:29)
[2022-03-08] MEDS: DOCUSATE SODIUM 100 MG CAPSULE PO SCH ×2 (08:52→21:28)
[2022-03-08] MEDS: APIXABAN 2.5 MG TABLET PO SCH ×2 (08:52→21:30)
[2022-03-08] MEDS: ESCITALOPRAM 10 MG TABLET PO SCH (09:01)
[2022-03-08] MEDS: DUTASTERIDE 0.5 MG CAPSULE PO SCH (09:01)
[2022-03-08] MEDS ORDERED: FLUTICASONE 50 MCG NASAL SPRAY 16 GM BOTTLE BOTH NARES PRN (09:28)
[2022-03-08] MEDS ORDERED: KETOCONAZOLE 2% CREAM 30 GM TUBE TOP PRN (09:28)
[2022-03-08] MEDS: cefTRIAXone 1,000 MG in SODIUM CHLORIDE 0.9% 100 ML IV SCH (11:49)
[2022-03-08] MEDS: SODIUM CHLORIDE 0.9% 1,000 ML IV SCH (17:24)
[2022-03-08] MEDS: clonazePAM 0.5 MG TABLET PO SCH (21:28)
[2022-03-08] MEDS: ACETAMINOPHEN 325 MG TABLET PO PRN (21:28)
[2022-03-08] MEDS: MIRTAZAPINE 15 MG TABLET PO SCH (21:30)
[2022-03-08] MEDS: FEXOFENADINE 60 MG TABLET PO SCH (21:30)
[2022-03-08] MEDS: ASPIRIN EC 81 MG TABLET PO SCH (21:31)
[2022-03-09] MEDS: SODIUM CHLORIDE 0.9% 1,000 ML IV SCH (01:02)
[2022-03-09 05:49] LABS: Basophils % 0.2 % (0.0-0.8); Eosinophils # 0.1 10*3/uL (0.0-0.87); Eosinophils % 0.9 % (0.00-10.9); Hematocrit 32.2 VOL% (42.0-52.0); Hemoglobin 10.7 GM/DL (14.0-18.0); Immature Granulocytes % 0.5 %; Immature Granulocytes Absolute 0.03 #; Lymphocytes % 30.8 % (21.2-54.2); Mean Corpuscular HGB Conc 33.2 GM/DL (32-36); Mean Corpuscular Volume 95.5 FL (87-102); Mean Platelet Volume 11.1 FL (9.6-12.0); Monocytes # 0.9 10*3/uL (0.11-0.8); Monocytes % 14.4 % (1.7-12.7); Neutrophils % 53.2 % (38.7-73.9); Platelet Count 82 T/CUMM (130-400); Red Blood Count 3.37 MC/CUMM (3.8-5.5); Red Cell Distribution Width 13.9 % (9.3-17.3); White Blood Count 6.3 T/CUMM (4-12)
[2022-03-09] MEDS: LEVOTHYROXINE 50 MCG TABLET PO SCH (06:01)
[2022-03-09 06:12] LABS: Albumin 2.9 G/DL (3.4-5.0); Bilirubin,Total 0.9 MG/DL (0.20-1.00); Calcium 8.8 MG/DL (8.5-10.1); Potassium 3.4 MMOL/L (3.5-5.1); Total Protein 5.7 G/DL (6.4-8.2)
[2022-03-09 06:15] LABS: Hypochromia Slight; Microcytosis Slight; Platelet Estimate Decreased
[2022-03-09] MEDS ORDERED: POTASSIUM CHLORIDE RIDER 10 MEQ/100 ML PREMIX IV PRN (08:10)
[2022-03-09] MEDS ORDERED: FUROSEMIDE 20 MG TABLET PO SCH (09:00)
[2022-03-09] MEDS: LINACLOTIDE 145 MCG CAPSULE PO SCH (09:17)
[2022-03-09] MEDS: APIXABAN 2.5 MG TABLET PO SCH ×2 (09:18→21:02)
[2022-03-09] MEDS: CARBIDOPA/LEVODOPA 25-100 MG TABLET PO SCH ×3 (09:18→21:03)
[2022-03-09] MEDS: carvediloL 3.125 MG TABLET PO SCH (09:19)
[2022-03-09] MEDS: ESCITALOPRAM 10 MG TABLET PO SCH (09:19)
[2022-03-09] MEDS: TAMSULOSIN 0.4 MG CAPSULE PO SCH ×2 (09:19→21:02)
[2022-03-09] MEDS: POTASSIUM CHLORIDE 20 MEQ TABLET PO PRN ×3 (09:20→15:00)
[2022-03-09] MEDS: FAMOTIDINE 20 MG TABLET PO SCH ×2 (09:20→21:02)
[2022-03-09] MEDS: DOCUSATE SODIUM 100 MG CAPSULE PO SCH ×2 (09:20→21:02)
[2022-03-09] MEDS: AMIODARONE 200 MG TABLET PO SCH (09:20)
[2022-03-09] MEDS: buPROPion XL 150 MG TABLET PO SCH (09:20)
[2022-03-09] MEDS: VANCOMYCIN INJ 1,000 MG in SODIUM CHLORIDE 0.9% 250 ML IV SCH ×2 (09:20→21:03)
[2022-03-09] MEDS: POLYETHYLENE GLYCOL POWDER 17 GM PACK PO SCH (09:25)
[2022-03-09] MEDS: FLUTICASONE 50 MCG NASAL SPRAY 16 GM BOTTLE BOTH NARES PRN (09:25)
[2022-03-09] MEDS: DUTASTERIDE 0.5 MG CAPSULE PO SCH (09:25)
[2022-03-09] MEDS: CEFEPIME 1,000 MG in SODIUM CHLORIDE 0.9% 100 ML IV SCH ×3 (11:43→23:34)
[2022-03-09] MEDS: ACETAMINOPHEN 325 MG TABLET PO PRN (12:38)
[2022-03-09] MEDS ORDERED: FUROSEMIDE 40 MG/4 ML VIAL IV ONE ×2 (13:44→18:00)
[2022-03-09] MEDS: ALBUTEROL INHALER 18 GM INH SCH ×3 (14:02→23:35)
[2022-03-09] MEDS ORDERED: SPIRONOLACTONE 25 MG TABLET PO ONE (15:38)
[2022-03-09] MEDS: LEVALBUTEROL 0.63 MG/3 ML NEB RESP TX SCH ×2 (15:41→19:28)
[2022-03-09] MEDS: ASPIRIN EC 81 MG TABLET PO SCH (21:02)
[2022-03-09] MEDS: FEXOFENADINE 60 MG TABLET PO SCH (21:02)
[2022-03-09] MEDS: MIRTAZAPINE 15 MG TABLET PO SCH (21:03)
[2022-03-09] MEDS: clonazePAM 0.5 MG TABLET PO SCH (21:03)
[2022-03-09] MEDS: ASCORBIC ACID 500 MG TABLET PO SCH (21:11)
[2022-03-10] MEDS: LEVALBUTEROL 0.63 MG/3 ML NEB RESP TX SCH ×4 (00:28→20:48)
[2022-03-10] MEDS: ALBUTEROL INHALER 18 GM INH SCH ×6 (03:44→23:50)
[2022-03-10] MEDS: CEFEPIME 1,000 MG in SODIUM CHLORIDE 0.9% 100 ML IV SCH ×4 (05:01→23:08)
[2022-03-10 05:22] LABS: Basophils % 0.1 % (0.0-0.8); Eosinophils # 0.1 10*3/uL (0.0-0.87); Eosinophils % 1.3 % (0.00-10.9); Hematocrit 32.4 VOL% (42.0-52.0); Hemoglobin 10.4 GM/DL (14.0-18.0); Immature Granulocytes % 0.7 %; Immature Granulocytes Absolute 0.05 #; Lymphocytes # 1.7 10*3/uL (1.4-4.0); Lymphocytes % 22.3 % (21.2-54.2); Mean Corpuscular HGB Conc 32.1 GM/DL (32-36); Mean Corpuscular Volume 95.6 FL (87-102); Mean Platelet Volume 11.1 FL (9.6-12.0); Monocytes # 0.8 10*3/uL (0.11-0.8); Monocytes % 10.7 % (1.7-12.7); Neutrophils % 64.9 % (38.7-73.9); Platelet Count 97 T/CUMM (130-400); Red Blood Count 3.39 MC/CUMM (3.8-5.5); Red Cell Distribution Width 14.1 % (9.3-17.3); White Blood Count 7.7 T/CUMM (4-12)
[2022-03-10 05:42] LABS: Calcium 8.5 MG/DL (8.5-10.1); Osmolality,Calculated 294.6 MOS/KG (273-304); Potassium 4.1 MMOL/L (3.5-5.1)
[2022-03-10 05:50] LABS: Platelet Estimate Decreased
[2022-03-10 05:56] LABS: Anisocytosis 1+; Burr Cells Few; Ovalocytes Few; Poikilocytosis Slight
[2022-03-10] MEDS: LEVOTHYROXINE 50 MCG TABLET PO SCH (06:02)
[2022-03-10] MEDS: TAMSULOSIN 0.4 MG CAPSULE PO SCH ×2 (10:18→20:48)
[2022-03-10] MEDS: SPIRONOLACTONE 25 MG TABLET PO SCH (10:18)
[2022-03-10] MEDS: carvediloL 3.125 MG TABLET PO SCH (10:18)
[2022-03-10] MEDS: APIXABAN 2.5 MG TABLET PO SCH ×2 (10:18→20:48)
[2022-03-10] MEDS: LINACLOTIDE 145 MCG CAPSULE PO SCH (10:18)
[2022-03-10] MEDS: AMIODARONE 200 MG TABLET PO SCH (10:18)
[2022-03-10] MEDS: VANCOMYCIN INJ 1,000 MG in SODIUM CHLORIDE 0.9% 250 ML IV SCH ×2 (10:18→20:46)
[2022-03-10] MEDS: ASCORBIC ACID 500 MG TABLET PO SCH ×2 (10:18→20:46)
[2022-03-10] MEDS: DUTASTERIDE 0.5 MG CAPSULE PO SCH (10:18)
[2022-03-10] MEDS: MAGNESIUM CHLORIDE 64 MG TABLET PO SCH (10:18)
[2022-03-10] MEDS: CARBIDOPA/LEVODOPA 25-100 MG TABLET PO SCH ×3 (10:19→20:47)
[2022-03-10] MEDS: FUROSEMIDE 40 MG/4 ML VIAL IV SCH ×2 (10:19→17:03)
[2022-03-10] MEDS: ESCITALOPRAM 10 MG TABLET PO SCH (10:19)
[2022-03-10] MEDS: DOCUSATE SODIUM 100 MG CAPSULE PO SCH ×2 (10:19→20:48)
[2022-03-10] MEDS: buPROPion XL 150 MG TABLET PO SCH (10:19)
[2022-03-10] MEDS: FAMOTIDINE 20 MG TABLET PO SCH ×2 (10:19→20:48)
[2022-03-10] MEDS: methylPREDNISolone SOD SUC 40 MG/1 ML VIAL IV SCH ×2 (10:23→21:37)
[2022-03-10] MEDS: FEXOFENADINE 60 MG TABLET PO SCH (20:47)
[2022-03-10] MEDS: MIRTAZAPINE 15 MG TABLET PO SCH (20:48)
[2022-03-10] MEDS: clonazePAM 0.5 MG TABLET PO SCH (20:48)
[2022-03-10] MEDS: ASPIRIN EC 81 MG TABLET PO SCH (20:48)
[2022-03-11] MEDS: LEVALBUTEROL 0.63 MG/3 ML NEB RESP TX SCH ×4 (01:20→20:20)
[2022-03-11] MEDS: ALBUTEROL INHALER 18 GM INH SCH ×6 (03:27→23:25)
[2022-03-11] MEDS: CEFEPIME 1,000 MG in SODIUM CHLORIDE 0.9% 100 ML IV SCH ×4 (05:12→23:25)
[2022-03-11 06:17] LABS: Hematocrit 32.4 VOL% (42.0-52.0); Hemoglobin 10.8 GM/DL (14.0-18.0); Immature Granulocytes % 0.5 %; Immature Granulocytes Absolute 0.04 #; Lymphocytes # 0.5 10*3/uL (1.4-4.0); Lymphocytes % 6.4 % (21.2-54.2); Mean Corpuscular HGB Conc 33.3 GM/DL (32-36); Mean Corpuscular Volume 95.6 FL (87-102); Mean Platelet Volume 11.1 FL (9.6-12.0); Monocytes # 0.3 10*3/uL (0.11-0.8); Monocytes % 4.1 % (1.7-12.7); Platelet Count 145 T/CUMM (130-400); Red Blood Count 3.39 MC/CUMM (3.8-5.5); Red Cell Distribution Width 13.7 % (9.3-17.3); White Blood Count 8.3 T/CUMM (4-12)
[2022-03-11] MEDS: LEVOTHYROXINE 50 MCG TABLET PO SCH (06:18)
[2022-03-11 06:39] LABS: Osmolality,Calculated 298.8 MOS/KG (273-304); Potassium 3.8 MMOL/L (3.5-5.1)
[2022-03-11] MEDS: TAMSULOSIN 0.4 MG CAPSULE PO SCH ×2 (09:52→21:17)
[2022-03-11] MEDS: DUTASTERIDE 0.5 MG CAPSULE PO SCH (09:52)
[2022-03-11] MEDS: buPROPion XL 150 MG TABLET PO SCH (09:52)
[2022-03-11] MEDS: ESCITALOPRAM 10 MG TABLET PO SCH (09:52)
[2022-03-11] MEDS: FAMOTIDINE 20 MG TABLET PO SCH ×2 (09:52→21:17)
[2022-03-11] MEDS: APIXABAN 2.5 MG TABLET PO SCH ×2 (09:53→21:18)
[2022-03-11] MEDS: AMIODARONE 200 MG TABLET PO SCH (09:53)
[2022-03-11] MEDS: ASCORBIC ACID 500 MG TABLET PO SCH ×2 (09:53→21:18)
[2022-03-11] MEDS: CARBIDOPA/LEVODOPA 25-100 MG TABLET PO SCH ×3 (09:53→21:17)
[2022-03-11] MEDS: carvediloL 3.125 MG TABLET PO SCH (09:53)
[2022-03-11] MEDS: DOCUSATE SODIUM 100 MG CAPSULE PO SCH ×2 (09:53→21:17)
[2022-03-11] MEDS: SPIRONOLACTONE 25 MG TABLET PO SCH (09:53)
[2022-03-11] MEDS: FUROSEMIDE 40 MG/4 ML VIAL IV SCH ×2 (09:54→15:33)
[2022-03-11] MEDS: LINACLOTIDE 145 MCG CAPSULE PO SCH (09:54)
[2022-03-11] MEDS: POLYETHYLENE GLYCOL POWDER 17 GM PACK PO SCH (10:39)
[2022-03-11] MEDS: VANCOMYCIN INJ 1,000 MG in SODIUM CHLORIDE 0.9% 250 ML IV SCH ×2 (10:40→23:38)
[2022-03-11] MEDS: methylPREDNISolone SOD SUC 40 MG/1 ML VIAL IV SCH ×2 (10:45→23:22)
[2022-03-11] MEDS: FEXOFENADINE 60 MG TABLET PO SCH (21:17)
[2022-03-11] MEDS: clonazePAM 0.5 MG TABLET PO SCH (21:17)
[2022-03-11] MEDS: ASPIRIN EC 81 MG TABLET PO SCH (21:17)
[2022-03-11] MEDS: MIRTAZAPINE 15 MG TABLET PO SCH (21:18)
[2022-03-12] MEDS: LEVALBUTEROL 0.63 MG/3 ML NEB RESP TX SCH ×4 (01:40→20:45)
[2022-03-12] MEDS: ALBUTEROL INHALER 18 GM INH SCH ×6 (03:00→23:40)
[2022-03-12 05:50] LABS: Basophils % 0.1 % (0.0-0.8); Hematocrit 33.5 VOL% (42.0-52.0); Immature Granulocytes % 0.9 %; Lymphocytes # 0.7 10*3/uL (1.4-4.0); Lymphocytes % 6.7 % (21.2-54.2); Mean Corpuscular HGB Conc 32.8 GM/DL (32-36); Mean Corpuscular Volume 94.1 FL (87-102); Mean Platelet Volume 10.6 FL (9.6-12.0); Monocytes # 0.6 10*3/uL (0.11-0.8); Monocytes % 5.4 % (1.7-12.7); Neutrophils % 86.9 % (38.7-73.9); Platelet Count 198 T/CUMM (130-400); Red Blood Count 3.56 MC/CUMM (3.8-5.5); Red Cell Distribution Width 13.7 % (9.3-17.3)
[2022-03-12] MEDS: VANCOMYCIN INJ 1,000 MG in SODIUM CHLORIDE 0.9% 250 ML IV SCH ×2 (05:50→22:39)
[2022-03-12 06:08] LABS: Calcium 9.2 MG/DL (8.5-10.1); Osmolality,Calculated 299.8 MOS/KG (273-304)
[2022-03-12] MEDS: LEVOTHYROXINE 50 MCG TABLET PO SCH (07:00)
[2022-03-12] MEDS: CEFEPIME 1,000 MG in SODIUM CHLORIDE 0.9% 100 ML IV SCH ×4 (07:00→23:40)
[2022-03-12] MEDS: buPROPion XL 150 MG TABLET PO SCH (09:34)
[2022-03-12] MEDS: DOCUSATE SODIUM 100 MG CAPSULE PO SCH ×2 (09:34→21:17)
[2022-03-12] MEDS: carvediloL 3.125 MG TABLET PO SCH (09:35)
[2022-03-12] MEDS: CARBIDOPA/LEVODOPA 25-100 MG TABLET PO SCH ×3 (09:35→21:17)
[2022-03-12] MEDS: TAMSULOSIN 0.4 MG CAPSULE PO SCH ×2 (09:35→21:17)
[2022-03-12] MEDS: DUTASTERIDE 0.5 MG CAPSULE PO SCH (09:35)
[2022-03-12] MEDS: ESCITALOPRAM 10 MG TABLET PO SCH (09:35)
[2022-03-12] MEDS: ASCORBIC ACID 500 MG TABLET PO SCH ×2 (09:36→21:17)
[2022-03-12] MEDS: FUROSEMIDE 40 MG/4 ML VIAL IV SCH ×2 (09:36→16:08)
[2022-03-12] MEDS: SPIRONOLACTONE 25 MG TABLET PO SCH (09:36)
[2022-03-12] MEDS: APIXABAN 2.5 MG TABLET PO SCH ×2 (09:36→21:17)
[2022-03-12] MEDS: AMIODARONE 200 MG TABLET PO SCH (09:36)
[2022-03-12] MEDS: MAGNESIUM CHLORIDE 64 MG TABLET PO SCH (09:36)
[2022-03-12] MEDS: FAMOTIDINE 20 MG TABLET PO SCH ×2 (09:36→21:16)
[2022-03-12] MEDS: LINACLOTIDE 145 MCG CAPSULE PO SCH (09:41)
[2022-03-12] MEDS: methylPREDNISolone SOD SUC 40 MG/1 ML VIAL IV SCH ×2 (09:43→21:30)
[2022-03-12] MEDS: clonazePAM 0.5 MG TABLET PO SCH (21:16)
[2022-03-12] MEDS: MIRTAZAPINE 15 MG TABLET PO SCH (21:17)
[2022-03-12] MEDS: FEXOFENADINE 60 MG TABLET PO SCH (21:17)
[2022-03-12] MEDS: ASPIRIN EC 81 MG TABLET PO SCH (21:17)
[2022-03-13] MEDS: ALBUTEROL INHALER 18 GM INH SCH ×6 (03:00→23:51)
[2022-03-13] MEDS: LEVALBUTEROL 0.63 MG/3 ML NEB RESP TX SCH ×4 (03:07→19:23)
[2022-03-13] MEDS: CEFEPIME 1,000 MG in SODIUM CHLORIDE 0.9% 100 ML IV SCH ×4 (05:55→23:51)
[2022-03-13] MEDS: LEVOTHYROXINE 50 MCG TABLET PO SCH (06:25)
[2022-03-13 06:43] LABS: Basophils % 0.1 % (0.0-0.8); Hematocrit 33.7 VOL% (42.0-52.0); Hemoglobin 11.2 GM/DL (14.0-18.0); Immature Granulocytes % 1.2 %; Immature Granulocytes Absolute 0.12 #; Lymphocytes # 0.6 10*3/uL (1.4-4.0); Lymphocytes % 6.5 % (21.2-54.2); Mean Corpuscular HGB Conc 33.2 GM/DL (32-36); Mean Corpuscular Volume 95.7 FL (87-102); Mean Platelet Volume 10.9 FL (9.6-12.0); Monocytes # 0.6 10*3/uL (0.11-0.8); Monocytes % 6.3 % (1.7-12.7); Neutrophils % 85.9 % (38.7-73.9); Platelet Count 239 T/CUMM (130-400); Red Blood Count 3.52 MC/CUMM (3.8-5.5); Red Cell Distribution Width 13.7 % (9.3-17.3); White Blood Count 9.8 T/CUMM (4-12)
[2022-03-13] MEDS: FUROSEMIDE 40 MG/4 ML VIAL IV SCH (09:05)
[2022-03-13] MEDS: SPIRONOLACTONE 25 MG TABLET PO SCH (10:23)
[2022-03-13] MEDS: DOCUSATE SODIUM 100 MG CAPSULE PO SCH ×2 (10:23→22:05)
[2022-03-13] MEDS: carvediloL 3.125 MG TABLET PO SCH (10:23)
[2022-03-13] MEDS: LINACLOTIDE 145 MCG CAPSULE PO SCH (10:23)
[2022-03-13] MEDS: DUTASTERIDE 0.5 MG CAPSULE PO SCH (10:23)
[2022-03-13] MEDS: AMIODARONE 200 MG TABLET PO SCH (10:23)
[2022-03-13] MEDS: TAMSULOSIN 0.4 MG CAPSULE PO SCH ×2 (10:24→21:57)
[2022-03-13] MEDS: POLYETHYLENE GLYCOL POWDER 17 GM PACK PO SCH (10:24)
[2022-03-13] MEDS: FUROSEMIDE 40 MG TABLET PO SCH (10:24)
[2022-03-13] MEDS: ERGOCALCIFEROL 50,000 UNIT CAPSULE PO SCH (10:24)
[2022-03-13] MEDS: ASCORBIC ACID 500 MG TABLET PO SCH ×2 (10:24→21:59)
[2022-03-13] MEDS: CARBIDOPA/LEVODOPA 25-100 MG TABLET PO SCH ×3 (10:24→22:00)
[2022-03-13] MEDS: FAMOTIDINE 20 MG TABLET PO SCH ×2 (10:24→21:55)
[2022-03-13] MEDS: APIXABAN 2.5 MG TABLET PO SCH ×2 (10:24→21:57)
[2022-03-13] MEDS: ESCITALOPRAM 10 MG TABLET PO SCH (10:24)
[2022-03-13] MEDS: methylPREDNISolone SOD SUC 40 MG/1 ML VIAL IV SCH ×2 (10:25→22:03)
[2022-03-13] MEDS: buPROPion XL 150 MG TABLET PO SCH (10:25)
[2022-03-13] MEDS: ACETAMINOPHEN 325 MG TABLET PO PRN (14:32)
[2022-03-13] MEDS: FEXOFENADINE 60 MG TABLET PO SCH (21:54)
[2022-03-13] MEDS: clonazePAM 0.5 MG TABLET PO SCH (21:55)
[2022-03-13] MEDS: MIRTAZAPINE 15 MG TABLET PO SCH (21:55)
[2022-03-13] MEDS: ASPIRIN EC 81 MG TABLET PO SCH (21:57)
[2022-03-14] MEDS: LEVALBUTEROL 0.63 MG/3 ML NEB RESP TX SCH ×4 (00:13→19:55)
[2022-03-14] MEDS: ALBUTEROL INHALER 18 GM INH SCH ×5 (02:53→22:02)
[2022-03-14 03:47] LABS: Basophils % 0.1 % (0.0-0.8); Hematocrit 34.2 VOL% (42.0-52.0); Hemoglobin 11.1 GM/DL (14.0-18.0); Immature Granulocytes % 2.2 %; Immature Granulocytes Absolute 0.22 #; Lymphocytes # 0.7 10*3/uL (1.4-4.0); Lymphocytes % 6.6 % (21.2-54.2); Mean Corpuscular HGB Conc 32.5 GM/DL (32-36); Mean Platelet Volume 10.4 FL (9.6-12.0); Monocytes # 0.5 10*3/uL (0.11-0.8); Monocytes % 4.6 % (1.7-12.7); Neutrophils % 86.5 % (38.7-73.9); Platelet Count 261 T/CUMM (130-400); Red Blood Count 3.64 MC/CUMM (3.8-5.5); Red Cell Distribution Width 13.7 % (9.3-17.3); White Blood Count 9.9 T/CUMM (4-12)
[2022-03-14 04:07] LABS: Calcium 9.1 MG/DL (8.5-10.1); Osmolality,Calculated 294.3 MOS/KG (273-304); Potassium 4.2 MMOL/L (3.5-5.1)
[2022-03-14] MEDS: CEFEPIME 1,000 MG in SODIUM CHLORIDE 0.9% 100 ML IV SCH ×4 (05:50→23:46)
[2022-03-14] MEDS: LEVOTHYROXINE 50 MCG TABLET PO SCH (05:51)
[2022-03-14] MEDS: carvediloL 3.125 MG TABLET PO SCH (08:51)
[2022-03-14] MEDS: DUTASTERIDE 0.5 MG CAPSULE PO SCH (08:51)
[2022-03-14] MEDS: APIXABAN 2.5 MG TABLET PO SCH ×2 (08:51→21:10)
[2022-03-14] MEDS: buPROPion XL 150 MG TABLET PO SCH (08:52)
[2022-03-14] MEDS: MAGNESIUM CHLORIDE 64 MG TABLET PO SCH (08:52)
[2022-03-14] MEDS: CARBIDOPA/LEVODOPA 25-100 MG TABLET PO SCH ×3 (08:52→21:12)
[2022-03-14] MEDS: AMIODARONE 200 MG TABLET PO SCH (08:52)
[2022-03-14] MEDS: FUROSEMIDE 40 MG TABLET PO SCH (08:53)
[2022-03-14] MEDS: TAMSULOSIN 0.4 MG CAPSULE PO SCH ×2 (08:53→21:10)
[2022-03-14] MEDS: FAMOTIDINE 20 MG TABLET PO SCH ×2 (08:53→21:10)
[2022-03-14] MEDS: ASCORBIC ACID 500 MG TABLET PO SCH ×2 (08:53→21:10)
[2022-03-14] MEDS: SPIRONOLACTONE 25 MG TABLET PO SCH (08:54)
[2022-03-14] MEDS: ESCITALOPRAM 10 MG TABLET PO SCH (08:54)
[2022-03-14] MEDS: DOCUSATE SODIUM 100 MG CAPSULE PO SCH ×2 (08:55→21:10)
[2022-03-14] MEDS: LINACLOTIDE 145 MCG CAPSULE PO SCH (08:55)
[2022-03-14] MEDS: FLUTICASONE 50 MCG NASAL SPRAY 16 GM BOTTLE BOTH NARES PRN (09:13)
[2022-03-14] MEDS: methylPREDNISolone SOD SUC 40 MG/1 ML VIAL IV SCH ×2 (11:04→21:30)
[2022-03-14] MEDS: FEXOFENADINE 60 MG TABLET PO SCH (21:09)
[2022-03-14] MEDS: ASPIRIN EC 81 MG TABLET PO SCH (21:09)
[2022-03-14] MEDS: clonazePAM 0.5 MG TABLET PO SCH (21:10)
[2022-03-14] MEDS: MIRTAZAPINE 15 MG TABLET PO SCH (21:11)
[2022-03-15] MEDS: LEVALBUTEROL 0.63 MG/3 ML NEB RESP TX SCH ×2 (01:41→07:58)
[2022-03-15] MEDS: ALBUTEROL INHALER 18 GM INH SCH ×3 (04:31→12:17)
[2022-03-15 04:43] LABS: Basophils % 0.1 % (0.0-0.8); Hematocrit 35.1 VOL% (42.0-52.0); Hemoglobin 11.5 GM/DL (14.0-18.0); Immature Granulocytes % 2.3 %; Immature Granulocytes Absolute 0.23 #; Lymphocytes # 0.7 10*3/uL (1.4-4.0); Lymphocytes % 6.9 % (21.2-54.2); Mean Corpuscular HGB Conc 32.8 GM/DL (32-36); Mean Corpuscular Volume 95.4 FL (87-102); Mean Platelet Volume 10.1 FL (9.6-12.0); Monocytes # 0.3 10*3/uL (0.11-0.8); Monocytes % 2.9 % (1.7-12.7); NRBC # 0.02 10*3/uL; Neutrophils % 87.8 % (38.7-73.9); Platelet Count 284 T/CUMM (130-400); Red Blood Count 3.68 MC/CUMM (3.8-5.5); Red Cell Distribution Width 13.9 % (9.3-17.3); White Blood Count 10.1 T/CUMM (4-12)
[2022-03-15 05:04] LABS: Calcium 8.8 MG/DL (8.5-10.1); Osmolality,Calculated 296.1 MOS/KG (273-304); Potassium 4.6 MMOL/L (3.5-5.1)
[2022-03-15] MEDS: CEFEPIME 1,000 MG in SODIUM CHLORIDE 0.9% 100 ML IV SCH ×2 (05:04→12:18)
[2022-03-15] MEDS: LEVOTHYROXINE 50 MCG TABLET PO SCH (05:39)
[2022-03-15 08:35] VITALS: BP 136/78
[2022-03-15] MEDS: LINACLOTIDE 145 MCG CAPSULE PO SCH (10:05)
[2022-03-15] MEDS: POLYETHYLENE GLYCOL POWDER 17 GM PACK PO SCH (10:05)
[2022-03-15] MEDS: buPROPion XL 150 MG TABLET PO SCH (10:06)
[2022-03-15] MEDS: DUTASTERIDE 0.5 MG CAPSULE PO SCH (10:06)
[2022-03-15] MEDS: DOCUSATE SODIUM 100 MG CAPSULE PO SCH (10:06)
[2022-03-15] MEDS: CARBIDOPA/LEVODOPA 25-100 MG TABLET PO SCH (10:07)
[2022-03-15] MEDS: carvediloL 3.125 MG TABLET PO SCH (10:07)
[2022-03-15] MEDS: ASCORBIC ACID 500 MG TABLET PO SCH (10:07)
[2022-03-15] MEDS: FAMOTIDINE 20 MG TABLET PO SCH (10:08)
[2022-03-15] MEDS: FUROSEMIDE 40 MG TABLET PO SCH (10:08)
[2022-03-15] MEDS: SPIRONOLACTONE 25 MG TABLET PO SCH (10:08)
[2022-03-15] MEDS: TAMSULOSIN 0.4 MG CAPSULE PO SCH (10:08)
[2022-03-15] MEDS: APIXABAN 2.5 MG TABLET PO SCH (10:09)
[2022-03-15] MEDS: AMIODARONE 200 MG TABLET PO SCH (10:09)
[2022-03-15] MEDS: ESCITALOPRAM 10 MG TABLET PO SCH (10:48)
[2022-03-15] MEDS: methylPREDNISolone SOD SUC 40 MG/1 ML VIAL IV SCH (12:16)
== END 2022-03-15 16:10 | disposition home health service (06) | DRG 177 ==
LOC: EDUNIT# → EDBD → N.ED 11:26 → N.EDINP 13:58 → N.3E 14:41
PROVIDERS: ADMIT Internal Medicine; ATTEND Internal Medicine